=== PATIENT | male | born 1990 | race Caucasian/White ===

== ENCOUNTER 2018-09-30 15:15 | Emergency (ER) | payer OTHER ==
[~2018-09-30] VITALS: Ht 165.1 cm; Wt 63.6 kg
[~2018-09-30 15:15] MED LIST: NOCURR
[2018-09-30 15:54] VITALS: BP 125/73
== END 2018-09-30 16:55 | disposition left against medical advice (07) ==
LOC: EMS 15:16
DX: K08.89 Other specified disorders of teeth and supporting structures (principal); Z53.21 Procedure and treatment not carried out due to patient leaving prior to being seen by health care provider